=== PATIENT | male | born 1990 | race Caucasian/White ===

== ENCOUNTER 2016-09-22 11:49 | Observation (INO) | payer OTHER ==
[~2016-09-22] VITALS: Ht 170.2 cm; Wt 90.0 kg
[~2016-09-22 11:49] MED LIST: CARAFATE DPS1 GM PO; CARAFATE1 GM PO; LORTAB 5-325 M1 EACH PO; MICRO-K DPS10 MEQ PO; NORVASC5 MG PO; PRILOSEC40 MG PO; PROTONIX40 MG PO; ZOFRAN4 MG PO
[2016-09-24] MEDS ORDERED: REGLAN-DPS10 MG PO (13:49)
--- NOTE | 2016-09-27 12:02 | HP ---
ADMIT: 09/22/2016 RM/LOC: 504 [facility] MR#: [id number] [address] [address] [place] [address] History and Physical SEX: M AGE: 26 : 1990 DATE OF SERVICE: CHIEF COMPLAINT/HISTORY OF PRESENT ILLNESS: This 26-year-old male, presents to the emergency room with nausea and vomiting, which has been intractable over the last 2 days. The patient has a history of occasional episodes like this in the past. He has been seen by a ventilated rib fitter. He has had an EGD in the past. He was told he had a history of gastritis. He has vomited no blood. He has had no diarrhea and in fact, he has had no bowel movements for the last 2 days. He also has a feeling of abdominal pain like he was "hungry." PREVIOUS MEDICAL HISTORY: Generally, his health has been fair. PHYSICAL EXAMINATION: VITAL SIGNS: Temperature is 99.4, respirations 16, pulse is 99, blood pressure is 139/79, his O2 sats are 100% on room air. GENERAL: The patient is a well-nourished, well-developed male. He is alert, cooperative, and oriented x3. HEENT: Usual. NECK: Usual. CHEST: Usual. HEART: Usual. ABDOMEN: Usual. GENITALIA: Normal. EXTREMITIES: Usual. ASSESSMENT: 1. Nausea and vomiting of unknown etiology. 2. Abdominal pain with leukocytosis. 3. Smoker. 4. History of marijuana use. 5. Previous history of gastritis. Alvino Owens MD/ flakito JOB #: [id number] CC: Alvino Owens MD, Attending Physician Alvino Owens MD, Family Physician
--- NOTE | 2016-10-10 16:41 | ER ---
ADMIT: 09/22/2016 RM/LOC: 504 [facility] MR#: [id number] [address] [address] [place] [address] Emergency Room Report SEX: M AGE: 26 : 1990 DATE: 09/22/2016 HISTORY OF PRESENT ILLNESS: A 26-year-old male comes to the emergency department with complaints of intractable vomiting over the past 24-48 hours. This is spontaneous onset. He has had similar symptoms in the past before he has had an extensive workup including an EGD. He says they have come to a clear etiology for his vomiting. The EGD did apparently showed gastritis, however, apparently a family development extension specialist at [place] disagreed with those findings and had him subsequently discontinue all of his medications. He did try to resume his medications, however, he has not been able to hold anything down including those medicines. PHYSICAL EXAMINATION: GENERAL: Reveals a 26-year-old male, in mild amount of distress. LUNGS: Clear to auscultation. CARDIOVASCULAR: Regular rate and rhythm without murmurs, rubs, or gallops. ABDOMEN: Diffusely tender but no guarding or rebound. Diminished bowel tones. EXTREMITIES: Unremarkable. CT scan of the abdomen was unremarkable. His white count is 13.8. His potassium is 3.3, BUN 25, glucose 143. He was given IV fluids, Reglan, and subsequently admitted under observation status for intractable vomiting. Gabriel Mejia MD/ flakito JOB #: [id number] CC: Alvino Owens MD, Attending Physician Alvino Owens MD, Family Physician
[2016-10-27] MEDS ORDERED: ZOFRAN4 MG PO (11:39)
[2016-10-27] MEDS ORDERED: KLOR-CON M2020 ME1 PO (11:39)
== END 2016-09-23 15:28 | disposition home or self-care (01) ==
LOC: ER 11:49 → 5MS 15:17
PROVIDERS: ADMIT Family Medicine
DX: R11.2 Nausea with vomiting, unspecified (principal); R10.9 Unspecified abdominal pain; D72.829 Elevated white blood cell count, unspecified; F17.200 Nicotine dependence, unspecified, uncomplicated; Z79.899 Other long term (current) drug therapy

== ENCOUNTER 2016-09-24 02:36 | Emergency (ER) | payer OTHER ==
--- NOTE | 2016-09-24 06:32 | ER ---
ADMIT: 09/24/2016 RM/LOC: ER [facility] MR#: [id number] [address] [address] [place] [address] Emergency Room Report SEX: M AGE: 26 : 1990 DATE: 09/24/2016 The patient is a 26-year-old male, just released from hospital for cyclic vomiting. States he has had 6 episodes of vomiting with more recent hematemesis. States he has not had any marijuana for a week. Exam remarkable for nontoxic, afebrile male with stable vital signs, benign abdomen. Lab remarkable for WBC 12.0, lactic 1.1, CRP less than 0.29, potassium 3.3, lipase 74. Tox screen positive for opiates, cocaine, and cannabinoids. The patient was given IV fluids, Zofran, Protonix, Toradol, Dilaudid with improvement of pain. Informed Juju not to use any synthetic cannabinoids as they are laced with stimulant-like material and will cause nausea and vomiting. Follow up with Dr. Owens for ongoing care and chronic pain medications. Rodolfo Buchanan MD/ flakito JOB #: [id number] CC: Rodolfo Buchanan MD, Attending Physician Alvino Owens MD, Family Physician Alvino Owens MD
[2016-09-24] MEDS ORDERED: REGLAN-DPS10 MG PO (13:49)
[2016-10-27] MEDS ORDERED: KLOR-CON M2020 ME1 PO (11:39)
[2016-10-27] MEDS ORDERED: ZOFRAN4 MG PO (11:39)
== END 2016-09-24 05:58 | disposition home or self-care (01) ==
LOC: ER 02:36
DX: G43.A0 Cyclical vomiting, in migraine, not intractable (principal); F12.10 Cannabis abuse, uncomplicated; F17.210 Nicotine dependence, cigarettes, uncomplicated; Z90.49 Acquired absence of other specified parts of digestive tract; Z79.899 Other long term (current) drug therapy

== ENCOUNTER 2016-09-24 14:36 | Emergency (ER) | payer OTHER ==
[~2016-09-24 14:36] MED LIST changes: +REGLAN-DPS10 MG PO
--- NOTE | 2016-09-29 08:48 | ER ---
ADMIT: 09/24/2016 RM/LOC: ER [facility] MR#: [id number] [address] [address] [place] [address] Emergency Room Report SEX: M AGE: 26 : 1990 DATE: 09/24/2016 TIME: 1436 hours. Please refer to my T-sheet for complete H and P. Briefly, the patient is a 26-year-old, comes in with vomiting. It has been on and off for a long time. He has had significant episodes. He is actually admitted on the . He went home. He is back here on the in the ER. A large workup looked okay except his tox screen is positive for cocaine and marijuana. He is actually seeing a GI doctor. He is back again. PHYSICAL EXAMINATION: VITAL SIGNS: Blood pressure 160/100, pulse 80, respiratory rate 16, temp 98.7, and sat 96%. GENERAL: No acute distress. HEENT: Grossly normal. LUNGS: Clear. HEART: Regular abdomen. Mildly tender in the epigastric. No rebound or guarding. SKIN: No rash. EMERGENCY DEPARTMENT COURSE: CBC normal. Chemistries normal except his total bilirubin 3.4. His AST and ALT and alkaline phosphatase were all normal. We gave him a liter of normal saline bolus. I gave him Reglan 10 IV, Protonix 40 IV, Toradol, and Zofran. He was requesting narcotics. I had discussion with Dr. Owens. We are going to try withhold those at this time. Dr. Owens said he will follow him up. Does not want him admitted. The patient does look stable otherwise. I ordered an outpatient MRCP and he was ready for discharge. ASSESSMENT: 1. Abdominal pain. 2. Nausea and vomiting. 3. Elevated bilirubin. PLAN: Outpatient MRCP. Return if worse. Fluids. Continue his nausea medications. Follow up with Dr. Owens. Eddi Howard MD/ flakito JOB #: [id number] CC: Eddi Howard MD, Attending Physician Alvino Owens MD, Family Physician
[2016-10-27] MEDS ORDERED: ZOFRAN4 MG PO (11:39)
[2016-10-27] MEDS ORDERED: KLOR-CON M2020 ME1 PO (11:39)
== END 2016-09-24 17:00 | disposition home or self-care (01) ==
LOC: ER 14:36
DX: R10.13 Epigastric pain (principal); R11.2 Nausea with vomiting, unspecified; E80.7 Disorder of bilirubin metabolism, unspecified; F17.200 Nicotine dependence, unspecified, uncomplicated; Z90.49 Acquired absence of other specified parts of digestive tract; Z79.899 Other long term (current) drug therapy

== ENCOUNTER → 2016-09-25 | Outpatient (CLI) | payer OTHER ==
[~2016-09-25] MED LIST changes: +KLOR-CON M2020 ME1 PO
== END | disposition home or self-care (01) ==
LOC: RAD.S 15:04
DX: R10.9 Unspecified abdominal pain (principal); E80.6 Other disorders of bilirubin metabolism

== ENCOUNTER 2016-10-01 17:21 | Emergency (ER) | payer OTHER ==
[~2016-10-01 17:21] MED LIST changes: -KLOR-CON M2020 ME1 PO
--- NOTE | 2016-10-05 15:16 | ER ---
ADMIT: 10/01/2016 RM/LOC: ER [facility] MR#: [id number] [address] [address] [place] [address] Emergency Room Report SEX: M AGE: 26 : 1990 DATE: 10/01/2016 ADDENDUM: The patient comes to the ER because he is having constant vomiting. He has had abdominal pain and vomiting for the last [address] Owens, his regular doctor sent him to see a GI specialist in [place] and they are setting him up to do ERCP to determine possibly the cause of his constant vomiting. He states he has not been able to keep anything down. He was seen by Dr. Epps in the office today. They hayes blood work on him and told him that his potassium was low and he needed to come to the ER. He says his potassium has been low and has been taking potassium twice a day. On physical exam, he does have constant retching, he has epigastric pain. I did review the labs that came with him from Dr. Epps's office, and he did have a potassium of 2.5. IV of normal saline was started, he was given a liter of bolus that was later repeated and Zofran. When I went to re-evaluate him, he was feeling substantially better. He did keep down 40 mEq of oral potassium without any difficulty. He has an appointment with Dr. Owens tomorrow, which he should keep. DIAGNOSES: 1. Vomiting. 2. Hypokalemia. Please see my T-sheet. IZZY Montes / Ernesto Claros MD / flakito JOB #: [id number] CC: Ernesto Claros MD, Attending Physician Alvino Owens MD, Family Physician
[2016-10-27] MEDS ORDERED: ZOFRAN4 MG PO (11:39)
[2016-10-27] MEDS ORDERED: KLOR-CON M2020 ME1 PO (11:39)
== END 2016-10-01 20:50 | disposition home or self-care (01) ==
LOC: ER 17:21
DX: E87.6 Hypokalemia (principal); R11.10 Vomiting, unspecified; Z90.49 Acquired absence of other specified parts of digestive tract; Z79.899 Other long term (current) drug therapy